=== PATIENT | female | born 1950 | race Caucasian/White ===

== ENCOUNTER 2019-08-30 09:48 | Emergency (ER) | payer MEDICARE, OTHER, SELFPAY ==
--- NOTE | ~2019-08-30 | XR_ITS ---
XR chest 2V DATE: 08/30/2019 10:13 INDICATION: Dizziness. History of COPD and stent placements. TECHNIQUE: AP and lateral views COMPARISON: 09/11/2013 portable AP chest FINDINGS: There is old pulmonary granulomatous disease including calcified pulmonary granuloma and ca lcified right hilar and right paratracheal nodes. Normal heart size. Aortic arch calcification. Coronary artery stent. No hilar or mediastinal enlargem ent. No pulmonary vascular congestion or pleural effusion. No pulmonary infiltrate or consolidation. Diffuse osteopenia. IMPRESSION: No active cardiopulmonary disease Aortic atherosclerosis Reviewed, dictated and finalized at location A. A CLERK
[2019-08-30 09:46] VITALS: BP 149/99; PULSE 83; RESP 15; TEMP 36.2; O2SAT 100
[2019-08-30 09:55] VITALS: PULSE 88
--- NOTE | 2019-08-30 10:00 | PC.NURSE ---
Patient refusing IV at this time, Brissa CABRERA notified.
--- NOTE | 2019-08-30 10:01 | ECG_ITS ---
Measurements Intervals [place] Rate: 83 P: 43 [place]: 131 QRS: 18 QRSD: 77 T: 48 QT: 373 QTc: 438 Interpretive Statements SINUS RHYTHM BORDERLINE ST ABNORMALITY- LATERAL LEADS BASELINE ARTIFACT- I, III, AVR, AVL, V4 BORDERLINE ECG Electronically Signed On 08-30-2019 10:44:46 FLUX TUBE ATTENDANT by Miguel Bansal D.O.
[2019-08-30 10:02] VITALS: BP 152/80; PULSE 85
--- NOTE | 2019-08-30 10:02 | ED.FALL ---
HPI - Fall General Chief Complaint: Fall Stated Complaint: FALL Source: patient Mode of arrival: EMS Limitations: no limitations History of Present Illness HPI Narrative: This is a 69 year old female that presents to the ER via EMS for a fall today. Reports she stood up too quickly and felt lightheaded. Reports she fell onto her bottom. Currently reports feeling better and has no complaints. She would like to go home. Refuses an IV, but does agree to some base blood work and a chest XR. Denies hitting her head, loss of consciousness, chest pain, shortness of breath, joint pain, numbness, or weakness. Related Data Allergies Allergy/AdvReac Type Severity Reaction Status Date / Time metoprolol Allergy Unknown Itching Verified 08/30/19 09:55 Review of Systems Review of Systems: Narrative: CONSTITUTIONAL: Denies fever ENT: Denies rhinorrhea, congestion, sore throat CARDIOVASCULAR: Denies chest pain, or edema. RESPIRATORY: Denies cough or dyspnea. GASTROINTESTINAL: Denies abdominal pain, nausea, vomiting GENITOURINARY: Denies dysuria or hematuria. MUSCULOSKELETAL: Denies back pain, joint pain, or myalgia. NEUROLOGIC: Denies headache, numbness, or weakness. All systems reviewed & are unremarkable except as noted in HPI and below PMFSH Past Medical History Medical History (Updated 08/30/19 @ 12:13 by Brissa Deleon PA-C) History of coronary artery disease History of hypertension Surgical History Surgical History (Updated 08/30/19 @ 10:07 by Brissa Deleon PA-C) History of coronary artery stent placement History of tubal ligation Social History Social History (Updated 08/30/19 @ 10:07 by Brissa Deleon PA-C) Smoking status: Light tobacco smoker Alcohol intake: never Substance use: never Exam Narrative: Exam Narrative: GENERAL: Elderly, well-nourished, and in no acute distress. HEAD: Normocephalic, atraumatic. EYES: PERRLA and EOMI. ENT: Nares clear, no rhinorrhea or epistaxis. Mucous membranes moist. Oropharynx without tonsillar hypertrophy exudate or other lesions. Bilateral TMs pearly whipple non-bulging NECK: Supple. No adenopathy or masses. No midline spinal tenderness CHEST: Clear to auscultation. No respiratory distress. No wheezes rales or rhonchi HEART: Regular rate and rhythm. No murmur heard. Normal peripheral pulses. ABDOMEN: Soft, nontender, nondistended, normal active bowel sounds. BACK: No midline spinal tenderness EXTREMITIES: Normal range of motion. No edema or obvious deformity. Strength equal in bilateral upper and lower extremities SKIN: Warm, dry, no rash. NEURO: No focal deficits. Alert and oriented x3. Cranial nerves II through XII grossly intact PSYCH: Normal mood and affect Course Vital Signs Vital signs: Vital Signs Temperature 97.2 F L 08/30/19 09:46 Pulse Rate 83 08/30/19 09:46 Respiratory Rate 15 08/30/19 09:46 Blood Pressure 149/99 H 08/30/19 09:46 Pulse Oximetry 100 08/30/19 09:46 Temperature 97.2 F L 08/30/19 09:46 Pulse Rate 71 08/30/19 11:36 Respiratory Rate 18 08/30/19 11:36 Blood Pressure 128/98 H 08/30/19 11:36 Pulse Oximetry 100 08/30/19 11:36 MDM - Fall MDM Narrative Medical decision making narrative: Patient presents to the emergency department for a fall today. Reports she felt lightheaded when she stood up and fell onto her bottom. She is neurologically intact. She denies any joint pain or injury from the fall. Denies hitting her head or loss of consciousness. CBC without leukocytosis. Hemoglobin is normal. Metabolic panel with no acute changes, creatinine is 1.1 which seems to be around her baseline. UA with evidence of possible urinary tract infection. She is not orthostatic. Chest x-ray without acute changes. EKG without acute changes. Patient refused IV or any treatment. Reports she feels fine now and would like to go home. Family reports they were worried about her being unsteady at home. She ambulated in the [place]
[2019-08-30 10:03] VITALS: BP 160/90; BP 163/83; PULSE 88; PULSE 90
[2019-08-30 10:28] LABS: Basophils Absolute Auto 0.1 K/mm3 (0.0-0.1); Basophils Percent Auto 0.8 % (0.2-1.2); Eosinophils Absolute Auto 0.2 K/mm3 (0-0.3); Eosinophils Percent Auto 2.4 % (0-4.4); Hematocrit 44.3 % (37.0-47.0); Hemoglobin 14.2 g/dL (12.0-15.0); Immature Granulocyte Absolute 0.03 K/mm3 (0.00-0.031); Immature Granulocyte Percent A 0.3 % (0-0.5); Lymphocytes Absolute Auto 2.98 K/mm3 (0.9-3.2); Lymphocytes Percent Auto 31.6 % (18.3-44.2); Mean Corpuscular HGB Conc 32.1 g/dl (32-36); Mean Corpuscular Hemoglobin 30.7 pg (26-34); Mean Corpuscular Volume 95.7 fl (80-100); Mean Platelet Volume 11.8 fl (7.4-10.4); Monocytes Absolute Auto 0.7 K/mm3 (0.1-0.6); Monocytes Percent Auto 7.1 % (2.6-8.5); Neutrophils Absolute Auto 5.5 K/mm3 (1.3-6.7); Neutrophils Percent Auto 57.8 % (45.5-73.1); Platelet Count Result 217 k/mm3 (150-375); Red Blood Count 4.63 M/mm3 (4.2-5.4); Red Cell Distribution Width 12.7 % (11.5-14.5); White Blood Count 9.4 K/mm3 (4.5-10.0)
--- NOTE | 2019-08-30 10:32 | PC.NURSE ---
Told patient we need a urine sample, patient states I went before I left the house. Patient refusing to try and pee at this time. Patient also refused straight cath at this time.
[2019-08-30 10:40] LABS: Alanine Aminotransferase 13 U/L (4-35); Alkaline Phosphatase 102 U/L (38-126); Aspartate Amino Transferase 21 U/L (14-36); Bilirubin,Total 0.5 mg/dL (0.2-1.3); Blood Urea Nitrogen 14 mg/dL (7-17); Calcium 9.1 mg/dL (8.4-10.2); Carbon Dioxide 23 mmol/L (22-30); Chloride 105 mmol/L (98-107); Estimated CRCL calculation 33 ml/min; Estimated Glomerular Filt Rate 49; Glucose 94 mg/dL (65-105); Potassium 3.7 mmol/L (3.4-5.0); Sodium 138 mmol/L (137-145)
[2019-08-30 11:36] VITALS: BP 128/98; PULSE 71; RESP 18; O2SAT 100
--- NOTE | 2019-08-30 11:44 | PC.NURSE ---
Family at bedside at this time and requesting for patient to have a head CT for c/o headaches. Patient is refusing to have head CT at this time. Brissa CABRERA notified.
[2019-08-30 11:45] LABS: Add Urine Microscopic? YES; Appearance Urine Cloudy (Clear); Bacteria Urine Trace /hpf; Bilirubin Urine Negative (Negative); Blood Urine 1+ (Negative); Color Urine Straw (Yellow); Glucose Urine UA Negative (Negative); Ketones Urine Negative (Negative); Leukocyte Esterase Ur 3+ LEU/UL (Negative); Mucus Urine Rare /lpf; Nitrate Urine Negative (Negative); Protein Urine Negative (Negative); Specific Grav Ur 1.006 (1.001-1.035); Squamous Epithelial Cell Urine Many /hpf (Few); Urobilinogen Urine Negative mg/dL (<2.0); WBC Urine 16-20 /hpf
[2019-08-30 12:25] VITALS: BP 141/74; PULSE 76; RESP 18; O2SAT 99
== END 2019-08-30 12:27 | disposition home or self-care (01) ==
PROVIDERS: Physician Assistant; Emergency Provider Emergency Medicine; PCP Family Medicine
DX: R42 Dizziness and giddiness (principal); N30.01 Acute cystitis with hematuria; I25.10 Atherosclerotic heart disease of native coronary artery without angina pectoris; I10 Essential (primary) hypertension; F17.200 Nicotine dependence, unspecified, uncomplicated; W18.39XA Other fall on same level, initial encounter
CPT/HCPCS: 36415; 71046; 80053; 81001; 85025; 87086; 93005; 99283

== ENCOUNTER 2020-07-27 12:29 | Outpatient (CLI) | payer MEDICARE, OTHER, SELFPAY ==
--- NOTE | ~2020-07-27 | US_ITS ---
EXAMINATION: US carotid duplex BI DATE: 07/27/2020 13:09 INDICATION: Revision right TECHNIQUE: Grayscale, color Doppler, and pulsed Doppler images of the cervical carotid arteries were obtained. The degree of vessel stenosis is placed in one of the following categories: normal, <50%, 5 0-69%, >=70% but less than near-occlusion, near-occlusion, or total occlusion. Note that percent sten osis relative to normal distal artery lumen diameter is indirectly measured from velocity measurement s as described by William, et al. Radiology 2003; [id number]:[id number]. Notes: Normal: Peak systolic velocity <125 centimeters/sec and no plaque <50%. Peak systolic velocity <125 ( EDV <40; ICA/CCA PSV ratio <2.0; used these factors only a tandem lesions or low cardiac output or co ntralateral disease) 50-69 %: PSV 125-230 (EDV 40-100; ratio 2-4) >= 70% but less than near occlusion: PSV greater than 230 (EDV > 100; ratio> 4.0) Near Occlusion: PSV that is variable; markedly narrowed lumen Occlusion: Absent flow on color/spectral Doppler and no lumen on whipple scale. COMPARISON: None. FINDINGS: RIGHT: The right common carotid artery (CCA) peak systolic velocity (PSV) is 78 cm/s. The right internal car otid artery (ICA) PSV is 95 cm/s. The right ICA end-diastolic velocity (EDV) is 31 cm/s. The right IC A/CCA PSV ratio is 1.3. The external carotid artery (ECA) PSV is 80 cm/s. There is antegrade flow in the right vertebral artery. LEFT: The left CCA PSV is 68 cm/s. The left ICA PSV is 110 cm/s. The left ICA EDV is 22 cm/s. The left ICA/ CCA PSV ratio is 1.6. The ECA PSV is 70 cm/s. There is antegrade flow in the left vertebral artery. IMPRESSION: 1. Less than 50% stenosis in the right internal carotid artery by sonographic criteria. 2. Less than 50% stenosis in the left internal carotid artery by sonographic criteria. Reviewed, dictated and finalized at location A. TE ADMINISTRATOR IMPRESSION: 1. Less than 50% stenosis in the right internal carotid artery by sonographic dionicio mckeon. 2. Less than 50% stenosis in the left internal carotid artery by sonographic alisa gomes.
== END 2020-07-27 12:30 | disposition home or self-care (01) ==
PROVIDERS: PCP Family Medicine; Visit Provider Internal Medicine Cardiovascular Disease
DX: H53.8 Other visual disturbances (principal); I65.23 Occlusion and stenosis of bilateral carotid arteries
CPT/HCPCS: 93880

== ENCOUNTER 2020-12-08 20:22 | Emergency (ER) | payer MEDICARE, OTHER, SELFPAY ==
[2020-12-08 20:25] VITALS: BP 133/89; PULSE 121; RESP 20; TEMP 37.4; O2SAT 97
[2020-12-08 21:26] VITALS: BP 132/52; PULSE 113; RESP 20; TEMP 36.4; O2SAT 97
--- NOTE | 2020-12-08 21:40 | ED.GENADULT ---
HPI - General Adult General Chief complaint: Unspecified Stated complaint: abcess tooth/facial swelling Time Seen by Provider: 12/08/20 21:10 Source: RN notes reviewed History of Present Illness HPI narrative: Patient presents emergency department from home for dental abscess. Patient states that she has several chipped and carious teeth and began to notice increased pain and swelling today with swelling over the right lower jaw patient was concerned she is developing a dental abscess came to the ER for further evaluation. She states she took no pain medication at home for the symptoms. Patient states she had a temperature up to 99.3 at home she denies any ear pain, sore throat, shortness of breath chest pain or any other symptoms patient states she does not currently have a dentist Related Data Home Medications Medication Instructions Recorded Confirmed aspirin 81 mg tablet,delayed 81 mg PO DAILY 09/03/19 10/01/19 release Allergies Allergy/AdvReac Type Severity Reaction Status Date / Time metoprolol Allergy Unknown Itching Verified 12/08/20 21:30 Review of Systems Review of Systems: Narrative: Gen.: Denies fevers or chills Eyes: Denies eye pain or visual change ENT: See HPI Respiratory: Denies shortness of breath or cough CV: Denies chest pain GI: Denies abdominal pain nausea, emesis Musculoskeletal: Denies neck pain Neuro: Denies headache Skin: Denies rash Except as documented, all other systems reviewed and negative [facility] Past Medical History Medical History History of coronary artery disease History of hypertension Surgical History Surgical History (Updated 08/30/19 @ 10:07 by Brissa Deleon PA-C) History of coronary artery stent placement History of tubal ligation Social History Social History Years smoked: 25 Smoking status: Current every day smoker Tobacco type: cigarettes Alcohol intake: never Substance use: never Substance use type: does not use Gender identity (if verbalized by the patient): Female Exam Narrative: Exam Narrative: APPEARANCE: Anxious in appearance nontoxic, resting in bed HEENT: Normocephalic, atraumatic, TMs clear bilaterally, nares patent, oral mucosa moist, airway patent, numerous missing teeth as well as remaining teeth are carious the right lower incisors are carious with tenderness palpation mild erythema the gum no fluctuance there is swelling of the overlying jaw in this region there is no sublingular tenderness no submandibular tenderness airway patent tolerating own secretions no trismus RESPIRATORY: No respiratory distress MUSCULOSKELETAl: Moves all extremities. NEURO: Awake and alert. Following commands, speech normal, no focal deficits SKIN:: Warm, dry. Normal Color PSYCHIATRIC: Anxious in appearance Course Course Emergency Course: Discussed with patient results of workup and diagnosis. Discussed need for follow-up with primary care, proper use of medication, and reasons to return to the emergency department. Patient understands and agrees to current treatment plan Vital Signs Vital signs: Vital Signs Temperature 99.3 F 12/08/20 20:25 Pulse Rate 121 H 12/08/20 20:25 Respiratory Rate 20 12/08/20 20:25 Blood Pressure 133/89 12/08/20 20:25 Pulse Oximetry 97 12/08/20 20:25 Temperature 97.5 F L 12/08/20 21:26 Pulse Rate 108 H 12/08/20 22:28 Respiratory Rate 20 12/08/20 21:26 Blood Pressure 132/52 L 12/08/20 21:26 Pulse Oximetry 99 12/08/20 22:28 Medical Decision Making Vital Signs Vital Signs: Vital Signs Temperature 99.3 F 12/08/20 20:25 Pulse Rate 121 H 12/08/20 20:25 Respiratory Rate 20 12/08/20 20:25 Blood Pressure 133/89 12/08/20 20:25 Pulse Oximetry 97 12/08/20 20:25 Temperature 97.5 F L 12/08/20 21:26 Pulse Rate 108 H 12/08/20 22:28 Respiratory Rate 11/20
[2020-12-08] MEDS: PENICILLIN V POTASSIUM 250 MG TABLET 500 MG PO (21:47)
[2020-12-08] MEDS: ACETAMINOPHEN 500 MG TABLET 1000 MG PO (21:47)
[2020-12-08 22:28] VITALS: PULSE 108; O2SAT 99
== END 2020-12-08 22:43 | disposition home or self-care (01) ==
PROVIDERS: Emergency Provider Emergency Medicine; PCP Family Medicine
DX: K04.7 Periapical abscess without sinus (principal); F17.210 Nicotine dependence, cigarettes, uncomplicated; I25.10 Atherosclerotic heart disease of native coronary artery without angina pectoris; I10 Essential (primary) hypertension; Z79.82 Long term (current) use of aspirin
CPT/HCPCS: 99283; A9270